=== PATIENT | male | born 1985 | race Caucasian/White ===

== ENCOUNTER 2016-12-02 18:30 | Emergency (ER) | payer OTHER ==
[2016-12-02 19:06] VITALS: BP 135/85; PULSE 107; RESP 16; TEMP 98.4
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
== END 2016-12-02 21:07 | disposition home or self-care (01) ==
LOC: EC 18:30
DX: S06.0X9A Concussion with loss of consciousness of unspecified duration, initial encounter (principal); V86.52XA Driver of snowmobile injured in nontraffic accident, initial encounter; Y93.29 Activity, other involving ice and snow; F17.200 Nicotine dependence, unspecified, uncomplicated; Z88.0 Allergy status to penicillin; Z79.899 Other long term (current) drug therapy
CPT/HCPCS: 70450; 72125; 99284

== ENCOUNTER 2016-12-11 14:19 | Emergency (ER) | payer OTHER ==
[2016-12-11 14:29] VITALS: BP 129/74; PULSE 110; RESP 18; TEMP 98.5
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
--- NOTE | 2016-12-11 14:58 | XR ---
EXAMINATION TYPE: XR lumbar spine 2 or 3V DATE OF EXAM ORDERED: 12/11/2016 2:53 PM HISTORY: Pain. COMPARISON: None. FINDINGS: There is a gentle dextroscoliosis. Vertebral body height and alignment are maintained. There is no spondylolysis or spondylolisthesis. D isc spaces are well maintained. The pedicles are intact. IMPRESSION: 1. NO ACUTE OSSEOUS LESION. 2. MILD DEXTROSCOLIOSIS.
== END 2016-12-11 15:28 | disposition home or self-care (01) ==
LOC: EC 14:19
DX: M62.830 Muscle spasm of back (principal); M54.5 Low back pain; G89.29 Other chronic pain; Z88.0 Allergy status to penicillin; F17.200 Nicotine dependence, unspecified, uncomplicated; Z79.1 Long term (current) use of non-steroidal anti-inflammatories (NSAID); Z79.899 Other long term (current) drug therapy
CPT/HCPCS: 72100; 99283

== ENCOUNTER → 2017-11-12 | Outpatient (CLI) | payer OTHER ==
--- NOTE | 2017-11-12 10:59 | MR ---
EXAMINATION TYPE: MR lumbar spine wo con DATE OF EXAM: 11/12/2017 COMPARISON: NONE HISTORY: 32-year-old male Radiculopathy, lumbar region TECHNIQUE: Multiplanar, multisequence images of the lumbar spine were acquired. FINDINGS: Vertebral body heights are preserved. Alignment is maintained. There is mild congenital spinal canal narrowing of the lumbar spine with AP canal dimension of 1.1 cm . Mild facet degenerative change lower lumbar spine. There is desiccation of the L4-L5 and L5-S1 intervertebral discs. Diffuse bulging at L4-L5 and modera te disc height loss at L5-S1. There is some associated edematous Modic type I endplate change at L5-S 1. Otherwise, no suspicious bone marrow replacement. Conus medullaris is normal. From T12 through L3 levels, no significant spinal canal or neural foraminal stenosis. At L3-L4, there is mild disc bulge without significant canal or foraminal stenosis. At L4-L5, there is diffuse bulging disc with superimposed small central disc protrusion. This impress es on the ventral thecal sac without significant spinal canal stenosis. Mild left and minimal inferio r right neuroforaminal narrowing. At L5-S1, there is diffuse disc bulge with a superimposed central, right paracentral disc extrusion w ith superior migration of disc material. The sequestered disc fragment measures 1.4 x 1.6 cm and appe ars to impinge the traversing right S1 nerve root. There is ventral impression on the thecal sac with out significant spinal canal stenosis. Along with facet arthropathy, there is moderate right and mild left neuroforaminal stenosis. No prevertebral or paravertebral soft tissue abnormality. IMPRESSION: 1. Moderate degenerative disc disease at L5-S1 greater than at L4-L5. There is associated edematous M odic type I endplate change at L5-S1. 2. Large central, right paracentral disc extrusion at L5-S1. There is a 1.6 cm sequestered disc fragm ent that has migrated superiorly and impinges the traversing right S1 nerve root. 3. Along with mild facet arthropathy, change result in a moderate right and mild left neural foramina l stenosis at L5-S1. 4. Background of mild congenital spinal canal narrowing. No shant canal compromise.
== END | disposition home or self-care (01) ==
LOC: RADMRIMAIN 06:50
PROVIDERS: ATTEND Family Medicine
DX: M51.17 Intervertebral disc disorders with radiculopathy, lumbosacral region (principal); M46.96 Unspecified inflammatory spondylopathy, lumbar region; M99.73 Connective tissue and disc stenosis of intervertebral foramina of lumbar region; Q76.49 Other congenital malformations of spine, not associated with scoliosis; G95.19 Other vascular myelopathies
CPT/HCPCS: 72148

== ENCOUNTER → 2019-10-04 | Outpatient (CLI) | payer BC ==
--- NOTE | 2019-10-04 07:46 | MR ---
EXAMINATION TYPE: MR lumbar spine wo con DATE OF EXAM: 10/04/2019 COMPARISON: MRI lumbar spine November 12, 2017. Lumbar spine x-ray December 11, 2016 HISTORY: Disc degeneration, lumbar region TECHNIQUE: Multiplanar, multisequence images of the lumbar spine were acquired. There is dextroconvex scoliotic curvature centered lower lumbar spine redemonstrated. Spine demonstra mamie straightening alignment on sagittal images. Persistent disc desiccation L4-L5 and L5-S1 levels. P ersistent and more prominent moderate to advanced disc space narrowing L5-S1 level with Modic type I endplate changes redemonstrated. Posterior disc herniations again seen lower lumbar spine with annula r tears. Persistent slight grade 1 retrolisthesis L4 on L5 and L5-S1. No significant spurring. Conus medullaris remains normal in position inferior T12 level. L1-L2: Normal disc appearance without desiccation. No herniation, protrusion or disc bulging. No ca nal stenosis is present. Foramina are patent bilaterally. L2-L3: Normal disc appearance without desiccation. No herniation, protrusion or disc bulging. No ca nal stenosis is present. Foramina are patent bilaterally. L3-L4: Mild broad disc bulge minimally effacing the anterior thecal sac. Bilateral neural foramina ar e patent. L4-L5: Mild facet degenerative changes bilaterally. Moderate broad disc bulge with central disc protr usion component effacing the anterior thecal sac. Mild bilateral neural foraminal narrowing. No signi ficant change from prior. L5-S1: Itiu-ym-avbjfjfi facet degenerative changes bilaterally. Moderate broad disc bulge with centra l disc protrusion component on current study. Interval improvement in nonvisualization of the superio r extrusion or herniation. Minimal effacement anterior thecal sac. Mild left and moderate right-sided neural foraminal narrowing on current study. Study laminectomy defect and right-sided scar tissue extending towards neural foramina. Paraspinal muscle bulk is maintained. IMPRESSION: Interval surgery with correction of large disc herniation L5-S1 level. Stable spondylolis thesis lower lumbar spine with degenerative changes L4-L5 and L5-S1 level redemonstrated as detailed above.
== END | disposition home or self-care (01) ==
LOC: RADMRIMAIN 06:52
PROVIDERS: ATTEND Nurse Practitioner
DX: M51.27 Other intervertebral disc displacement, lumbosacral region (principal); M43.16 Spondylolisthesis, lumbar region; M47.817 Spondylosis without myelopathy or radiculopathy, lumbosacral region; M47.816 Spondylosis without myelopathy or radiculopathy, lumbar region
CPT/HCPCS: 72148

== ENCOUNTER → 2019-10-26 | Outpatient (CLI) | payer BC ==
[2019-10-26 12:06] VITALS: BP 157/84; PULSE 99; RESP 16
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
== END | disposition home or self-care (01) ==
LOC: PNWHC3 11:37
PROVIDERS: ATTEND Anesthesiology
DX: G89.29 Other chronic pain (principal); M47.816 Spondylosis without myelopathy or radiculopathy, lumbar region; F17.200 Nicotine dependence, unspecified, uncomplicated; Z98.1 Arthrodesis status; Z98.890 Other specified postprocedural states; Z79.891 Long term (current) use of opiate analgesic; Z88.0 Allergy status to penicillin
CPT/HCPCS: 99211